=== PATIENT | female | born 1945 | race Two or more races ===

== ENCOUNTER → 2016-05-29 | Day surgery (SDC) | payer OTHER ==
[~2016-05-29] MED LIST: IOPAMIDOL (ISOVUE-300) 100 ML BTL IV ONE
== END | disposition home or self-care (01) ==
LOC: FIMAGING 07:37
PROVIDERS: ATTEND Internal Medicine Nephrology
PROC: B51W1ZZ Fluoroscopy of Dialysis Shunt/Fistula using Low Osmolar Contrast (ICD-10-PCS; principal; 2016-05-29)
DX: Z51.89 Encounter for other specified aftercare (principal); N18.6 End stage renal disease; Z99.2 Dependence on renal dialysis
CPT/HCPCS: 36901; 99152; C1769; J1644; Q9967

== ENCOUNTER 2016-06-11 15:20 | Emergency (ER) | payer OTHER ==
[2016-06-11 15:35] VITALS: BP 144/63; PULSE 60; RESP 18; TEMP 98.4; O2SAT 96
[2016-06-11 15:52] LABS: COLOR YELLOW; LEUKOCYTE ESTERASE,URINE 2+ (NEGATIVE); NITRITE,URINE NEGATIVE (NEGATIVE)
[2016-06-11 16:07] LABS: BACTERIA 4+ /hpf (NONE SEEN); WBC,URINE 50-182 /hpf (0-3)
[2016-06-11] MEDS ORDERED: CEPHALEXIN 500 MG CAP PO ONE (16:21)
--- NOTE | 2016-06-11 16:28 | UCPHY ---
H & P Patient Type: New Chief Complaint Nursing Narrative: pain with urination x 1 week, dialysis pt Time Seen by Provider: 06/11/16 16:04 HPI/ROS: CHIEF COMPLAINT: Dysuria HISTORY OF PRESENT ILLNESS: Patient is a 71-year-old diabetic female on dialysis who comes to the Urgent Care after having dialysis today. She is complaining of dysuria and foul-smelling urine and mild suprapubic pain or last week. She has been trying to increase her hydration and cranberry juice but states that she has had an extra L and half of fluid that needed to be dialyzed. She has not had a fever. No flank pain. She does not have any body aches. She states that this is very similar to urinary tract infection she has had in the past. She does not have a catheter but a fistula. REVIEW OF SYSTEMS: Constitutional: denies: chills, fever, recent illness, recent injury EENTM: denies: blurred vision, double vision, nose congestion Respiratory: denies: cough, shortness of breath Cardiac: denies: chest pain, irregular heart rate, lightheadedness, palpitations Gastrointestinal/Abdominal: denies: abdominal pain, diarrhea, nausea, vomiting, blood streaked stools Genitourinary: see HPI Musculoskeletal: denies: joint pain, muscle pain Skin: denies: lesions, rash, jaundice, bruising Neurological: denies: headache, numbness, paresthesia, tingling, dizziness, weakness Hematologic/Lymphatic: denies: blood clots, easy bleeding, easy bruising Immunologic/allergic: denies: HIV/AIDS, transplant EXAM: GENERAL: Well-appearing, well-nourished and in no acute distress. HEAD: Atraumatic, normocephalic. EYES: Pupils equal round and reactive to light, extraocular movements intact, sclera anicteric, conjunctiva are normal. ENT: TMs normal, nares patent, oropharynx clear without exudates. Moist mucous membranes. NECK: Normal range of motion, supple without lymphadenopathy or JVD. LUNGS: Breath sounds clear to auscultation bilaterally and equal. No wheezes rales or rhonchi. HEART: Regular rate and rhythm without murmurs, rubs or gallops. ABDOMEN: Soft, nontender, normoactive bowel sounds. No guarding, no rebound. No masses appreciated. BACK: No CVA tenderness, no spinal tenderness, step-offs or deformities EXTREMITIES: Left arm fistula, good thrill, no sign of infection, Normal range of motion, no pitting or edema. No clubbing or cyanosis. NEUROLOGICAL: Cranial nerves II through XII grossly intact. Normal speech, normal gait. 5/5 strength, normal movement in all extremities, normal sensation PSYCH: Normal mood, normal affect. SKIN: Warm, dry, normal turgor, no visible rashes or lesions. Source: Patient Exam Limitations: No limitations - Medical/Surgical History Hx Asthma: No Hx Chronic Respiratory Disease: No Hx Diabetes: Yes Hx Cardiac Disease: No Hx Renal Disease: Yes Hx Cirrhosis: No Hx Alcoholism: No Hx HIV/AIDS: No Hx Splenectomy or Spleen Trauma: No Other PMH: dialysis, diabetes, htn - Family History Significant Family History: No pertinent family hx - Social History Smoking Status: Former smoker Alcohol Use: Sober Drug Use: None Constitutional: Initial Vital Signs Temperature (C) 36.9 C 06/11/16 15:31 Heart Rate 60 06/11/16 15:31 Respiratory Rate 18 06/11/16 15:31 Blood Pressure 144/63 H 06/11/16 15:31 O2 Sat (%) 96 06/11/16 15:31 O2 Delivery Mode Room Air Allergies/Adverse Reactions: No Known Allergies Allergy (Verified 09/27/15 14:33) Home Medications: Medication Instructions Recorded Insulin Glargine [Lantus 100 6 units SC HS 01/29/12 UNITS/ML (RX)] Multivitamins [Multivitamin (OTC)] 1 each PO DAILY 01/29/12 Vitamin E [Vitamin E 400 units 400 unit PO DAILY 01/29/12 (OTC)] Lisinopril 10 mg DAILY 09/27/15 Cephalexin [Keflex] 500 mg PO TID #21 cap 06/11/16 Nitrofurantoin Monohyd/M-Cryst 100 mg PO BID #20 cap 06/11/16 [Nitrofurantoin [place]-Macrocrystal] Medical Decision Making ED Course/Re-evaluation: Will treat the patient with Keflex. We will culture her urine. She feels well on her vital signs are stable. We discussed strict warnings for returning and further treatment. She is eager to go home. 4:50 p.m. the patient is declining Keflex. She states that it is not worked well for her in the past. Will try Macrobid. Differential Diagnosis: Partial list of the Differential diagnosis considered include but were not limited to; urinary tract infection, pyelonephritis and although unlikely based on the history and physical exam, I also considered sepsis, kidney stone. I discussed these differential diagnoses and the plan with the patient as well as the usual and expected course. The patient understands that the diagnosis is provisional and that in medicine we are not always correct and that further workup is often warranted. Usual and customary warnings were given. All of the patient's questions were answered. The patient was instructed to return to the emergency department should the symptoms at all worsen or return, otherwise to followup with the physician as we discussed. - Data Points Laboratory Results: 06/11/16 15:45 Urine Color YELLOW Urine Appearance CLOUDY Urine pH 8.0 H (5.0-7.5) Ur Specific [place] 1.020 (1.002-1.030) Urine Protein 2+ H (NEGATIVE) Urine Ketones NEGATIVE (NEGATIVE) Urine Blood TRACE H (NEGATIVE) Urine Nitrate NEGATIVE (NEGATIVE) Urine Bilirubin NEGATIVE (NEGATIVE) Urine Urobilinogen 0.2 EU EU (0.2-1.0) Ur Leukocyte Esterase 2+ H (NEGATIVE) Urine RBC 1-3 /hpf /hpf (0-3) Urine WBC 50-182 /hpf H /hpf (0-3) Ur Epithelial Cells TRACE /lpf /lpf (NONE-1+) Urine Bacteria 4+ /hpf H /hpf (NONE SEEN) Ur Culture Indicated? INDICATED H (NI) Urine Glucose NEGATIVE (NEGATIVE) Departure - Departure Disposition: Home, Routine, Self-Care Clinical Impression: Urinary tract infection Qualifiers: Urinary tract infection type: acute cystitis Hematuria presence: without hematuria Qualified Code(s): N30.00 - Acute cystitis without hematuria Condition: Fair Instructions: Urinary Tract Infection in Women (ED) Referrals: NONE *PRIMARY CARE P,. [Primary Care Provider] - As per Instructions Siri Hubbard MD [[facility] Primary Care Provider] - As per Instructions Prescriptions: Cephalexin [Keflex] 500 mg PO TID #21 cap Nitrofurantoin Monohyd/M-Cryst [Nitrofurantoin [place]-Macrocrystal] 100 mg PO BID #20 cap - PQRS PQRS Measurement: Not applicable
[2016-06-11] MEDS ORDERED: NITROFURANTOIN MACROBID 100 MG CAP PO ONE (16:52)
== END 2016-06-11 16:45 | disposition home or self-care (01) ==
LOC: CED 15:20
DX: N30.00 Acute cystitis without hematuria (principal); I10 Essential (primary) hypertension; E11.9 Type 2 diabetes mellitus without complications; Z99.2 Dependence on renal dialysis; Z87.891 Personal history of nicotine dependence
CPT/HCPCS: 81003-PO; 81015-PO; G0463-PO

== ENCOUNTER → 2017-01-08 | Day surgery (SDC) | payer OTHER ==
[~2017-01-08] MED LIST changes: -IOPAMIDOL (ISOVUE-300) 100 ML BTL IV ONE; +IOPAMIDOL (ISOVUE-300) 100 ML BTL ONE
== END | disposition home or self-care (01) ==
LOC: FIMAGING 08:07 → EEVIPCON 08:07
PROVIDERS: ATTEND Internal Medicine Nephrology
PROC: B31J1ZZ Fluoroscopy of Left Upper Extremity Arteries using Low Osmolar Contrast (ICD-10-PCS; principal; 2017-01-08)
DX: I77.0 Arteriovenous fistula, acquired (principal)
CPT/HCPCS: J1644; Q9967

== ENCOUNTER → 2018-02-04 | Day surgery (SDC) | payer OTHER | END | disposition home or self-care (01) | LOC: FIMAGING 12:07 | PROVIDERS: ATTEND Internal Medicine Nephrology | PROC: 057F3ZZ Dilation of Left Cephalic Vein, Percutaneous Approach (ICD-10-PCS; principal; 2018-02-04) | DX: T82.858A Stenosis of other vascular prosthetic devices, implants and grafts, initial encounter (principal); T82.898A Other specified complication of vascular prosthetic devices, implants and grafts, initial encounter; N18.6 End stage renal disease; Z99.2 Dependence on renal dialysis | CPT/HCPCS: 36902; C1769; C1894; C1725; J1644; Q9967 ==